=== PATIENT | male | born 1985 | race Caucasian/White ===

== ENCOUNTER 2024-07-07 12:58 | Emergency (ER) | payer BC, SELFPAY ==
--- OUTSIDE RECORDS SUMMARY | 2024-07-07 13:00 | XMS_ITS | Clinical Summary ---
Author Organization [employer] [facility] Address [place], [place] [address] Care Team Providers Care Meeting Coordinator Name Role Phone Dilip Cantu MD Primary Care Provider [phone]- [phone] Allergies No known active allergies Medications hydrocortisone (ANUSOL-HC) 2.5 % rectal creamIndication s:Rectal bleeding,Hemorr hoids, external Apply topically to affected area(s) two times daily. 28 g 1 4 Active Active Problems No known active problems Immunizations Name Administration Dates Next Due Hepatitis A (Adult) 03/17/2019,02/17/2007 Hepatitis B (Adult) 07/06/2007,02/17/2007 Hepatitis B (Peds) 01/28/2002 Influenza Virus, Unspecified 05/23/2019 Influenza, IIV3 (Age 6-35 mos) 8,04/28/2013,04/09/2012,04/23/2011 ,04/26/2008 Influenza, IIV4 07/16/2023,05/01/2017,04/24/2016 ,04/12/2015 Influenza, Whole Virus 05/04/2014 MMR 10/30/1995,01/27/1985 Meningococcal Vaccine (Menomune) 01/28/2002 Oral Polio Vaccine 10/05/1988,01/04/1985, 984,1983 Td (Age >=7 Years) 11/27/2005 Tdap 07/16/2023,04/09/2012 Family History Medical History Relation Name Comments No Known Problems Brother Hyperlipidemia Father Hypertension Father Heart attack Maternal Grandfather No Known Problems Mother Heart attack Other Heart attack Paternal Grandfather Relation Name Status Comments Brother Father Maternal Grandfather Mother Other Paternal Grandfather Social History Tobacco Use Types Packs/Day Years Used Date Smoking Tobacco: Never Smokeless Tobacco: Never Tobacco Cessation:Counseling Given: Yes Alcohol Use Standard Drinks/Week Comments Yes 0 (1 standard drink = 0.6 oz pur e alcohol) O[facility]. [facility] Utilities Answer Date Recorded Do you have trouble paying f or utilities (for example, heat, electricity, water, phone)? Yes 07/13/2023 Social Connections Answer Date Recorded Do you often feel lonely or isolated from those around you? 0 07/13/2023 Financial Resource Strain Answer Date R ecorded Difficulty of Paying Living Expenses 3 07/16/2023 Difficulty of Paying Living Expenses Not on file 07/16/2023 Food Insecurity Answer Date Recorded Do you worry your food will run out before you are able to buy more? 1 07/13/2023 Transportation Needs Answer Date Record ed Does lack of transportation keep you from medica l appointments? 1 07/13/2023 Does lack of transportation keep you from work, meetings or getting things that you need? 1 07/13/2023 Housing Stability Answer Date Recorded What is your housing situation today? 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 Obstetrics History Last Filed Vital Signs Vital Sign Reading Time Taken Comments Blood Pressure 111/71 07/16/2023 10:23 AM PLISSE MACHINE OPERATOR Pulse 59 07/16/2023 10:23 AM PLISSE MACHINE OPERATOR Temperature 36.6 C (97.8 F) 09/25/2016 8:49 AM CDT Respiratory Rate - - Oxygen Saturation 100% 07/16/2023 10:23 AM PLISSE MACHINE OPERATOR Inhaled Oxygen Concentration - - Weight 82.4 kg (181 lb 9.6 oz) 07/16/2023 10:23 AM PLISSE MACHINE OPERATOR Height 187.5 cm (6' 1.82) 07/16/2023 10:[address] Body Mass Index 23.43 07/16/2023 10:23 AM PLISSE MACHINE OPERATOR Plan of Treatment Upcoming Encounters Date Type Department Care Team (Late st Contact Info) Description 07/21/2024 7:25 AM PLISSE MACHINE OPERATOR Office Visit [facility] [address] [facility] [address] Maame Choi PA [address] [place] [address] Health Maintenance Due Date Last Done Comments Depression screening for age 12+ 07/03/2017 07/03/2016 COVID-19 vaccine series ( season) 2024 07/25/2021, 08/23/2020, 07/26/2020 Influenza for age 9-49 03/07/2024 , 05/23/2019, 05/01/2017, Additional history exists BMI (ht and wt on same day) for age 18+ 07/16/2024 07/16/2023, 08/26/2016, 07/03/2016 Lipids for age 35-44 08/13/2028 08/13/2023, 07/04/20 16 Tetanus booster 07/16/2033 07/16/2023, 1010/2011, 11/27/2005 Tdap Completed 07/16/2023, 04/09/2012 HIV for age 15-65 Completed 08/13/2023 Hepatitis C screening for age 18-79 Completed 08/13/2023 Pneumococcal series for age 6-49 Aged Out No longer eligible based on patient's age to complete this topic Procedures Procedure Name Priority Date/Time Associated Diagnosis Comments ANTI HIV 1/2 Routine 08/13/2023 10:00 AM PLISSE MACHINE OPERATOR Encounter for screening for human immunodeficiency virus (HIV) ANTI HCV Routine 08/13/2023 10:00 AM PLISSE MACHINE OPERATOR Encounter for hepatitis C screening test for low risk patient LIPID PANEL W REFLEX MEASURED LDL Routine 08/13/2023 10:00 AM PLISSE MACHINE OPERATOR Encounter for screening for lipoid disorders from Last 3 Months or Most Recently Relevant to Health Maintenance Results * LIPID PANEL W REFLEX MEASURED LDL [[id number]} (08/13/2023 10:00 AM PLISSE MACHINE OPERATOR) CHOLESTEROL,TOTAL 185 100 - 199 mg/dL 08/13/2023 6:09 PM [facility] Comment: Cholesterol, Total Reference Ranges Desirable <200 mg/dL Borderline 200-239 mg/dL High >=240 mg/dL TRIGLYCERIDES 48 <150 mg/dL 08/13/2023 6:09 PM PLISSE MACHINE OPERATOR [facility] HDL CHOLESTEROL 70 >40 mg/dL 6:09 PM PLISSE MACHINE OPERATOR [facility] NON-HDL CHOLESTEROL 115 <145 mg/dl 08/13/2023 6:09 PM PLISSE MACHINE OPERATOR [facility] CHOL/HDL RATIO 2.64 <4.50 08/13/2023 6:09 PM PLISSE MACHINE OPERATOR [facility] LDL CHOLESTEROL 105 <=130 mg/dL 08/13/2023 6:09 PM [facility] VLDL CHOLESTEROL 10 <=30 mg/dL 08/13/2023 6:09 PM [facility] PROVIDER ORDERED STATUS RANDOM 08/13/2023 6:09 PM [facility] Blood BLOOD SPECIMEN / Unknown Venipuncture / Unknown 08/13/2023 10:00 AM PLISSE MACHINE OPERATOR 08/13/2023 10:01 AM [facility] us Maame DRAKE CHEMISTRY Final Res ult [facility] [address] [place] [id number], [place] * ANTI HCV [01732.2] (08/13/2023 10:00 AM [facility]) Pathologist [facility] HEPATITIS C ANTIBODY Non-Reacti ve Non-React jayme 08/13/2023 5:59 PM [facility] Comment:Please note, per www .CDC.gov: If a patient is known to be at high risk of HCV infection, or is symptomatic, and the physician's suspicion of HCV infection is high, HCV RNA testing is often employed and is of diagnostic value, even after an initial negative anti-HCV test result. Blood BLOOD SPECIMEN / Unknown Venipuncture / Unknown 08/13/2023 10:00 AM PLISSE MACHINE OPERATOR 08/13/2023 10:01 AM PLISSE MACHINE OPERATOR Maame DRAKE SEND OUTS Final Res ult [facility] [address] [place] [id number], * ANTI HIV 1/2 [37538.0] (08/13/2023 10:00 AM PLISSE MACHINE OPERATOR) HIV-1/HIV-2 SCREEN Non-Reacti ve Non-Reacti ve 08/13/2023 5:55 PM PLISSE MACHINE OPERATOR [facility] Comment:HIV-1 p24 and HIV-1/ HIV-2 Ab Not Detected. Blood BLOOD SPECIMEN / Unknown Venipuncture / Unknown 08/13/2023 10:00 AM PLISSE MACHINE OPERATOR 08/13/2023 10:01 AM PLISSE MACHINE OPERATOR Maame DRAKE SEND OUTS Final Res ult Performing Organization Address [facility] Co de Phone Number [facility] [address] [place] [address], from Last 3 Months or Most Recently Relevant to Health Maintenance Insurance [facility] Care Teams Meeting Coordinator Relationship Specialty Start Date End Date Dilip Cantu MD [address] [place] [address] PCP - General Family Practice 06/10/16
[2024-07-07 13:20] VITALS: BP 128/74; PULSE 95; RESP 20; TEMP 37.7; O2SAT 98; BMI 23.7
--- NOTE | 2024-07-07 13:56 | ED_ITS ---
HPI - General Adult General Time Seen by Provider: 13:57 Date Seen: 07/07/24 Chief complaint: Cough Stated complaint: cough/fever/headache/SOB Time Seen by Provider: 07/07/24 13:21 Source: patient and RN notes reviewed Mode of arrival: ambulatory Limitations: no limitations History of Present Illness HPI narrative: This 38-year-old male is coming in with concern of fatigue, body aches and fever onset today in the setting being sick for couple weeks now. He has been sick since June 17. Overnight on the , had fevers chills briefly. He has had ongoing cough symptoms this whole time. Today he felt like he was worsening. He has the ongoing cough but today just really felt tired and fatigued, body aches her significant today. He notes he is not sleeping from the cough. Feels short of breath today, has a headache. He denies any significant past medical history such as lung problems, no asthma. Related Data Previous Rx's ?Medication ?Instructions ?Recorded codeine 10 mg-guaifenesin 100 mg/5 5 - 10 ml PO Q6H PRN #473 mL 07/07/24 mL oral liquid (Guaifenesin AC) oseltamivir 75 mg capsule (Tamiflu) 75 mg PO BID 5 days #10 caps 07/07/24 Allergies Allergy/AdvReac Type Severity Reaction Status Date / Time No Known Drug Allergies Allergy Verified 07/07/24 13:23 Review of Systems Status of ROS: Reports: 6 or more systems reviewed and unremarkable except as noted in History and below PFSH PFSH Social History Smoking Status: Current every day smoker Do you use any of these nicotine containing products: None How often do you have a drink containing alcohol: monthly or less AUDIT-C Alcohol total score: 1 Non-prescribed substance use: denies use service: No Exam Const: Vital Signs, click to edit/add: Vital Signs - 24 hr 07/07/24 13:20 Temperature 99.8 F H Pulse Rate [Pulse Oximeter] 95 Respiratory Rate 20 Blood Pressure [Ri ght Upper Arm] 128/74 Pulse Oximetry 98 Oxygen Delivery Me thod Room Air This 38-year-old male is alert, interactive, no apparent distress. Do agree looks tired but no distress. Breathing easily on room air, no tachypnea. Pupils equal round, sclera clear. If the speak in complete sentences, voice is normal. Lungs are clear, good air entry, wheezing crackles, no tachypnea. CV regular rate and rhythm, no murmur, normal S1-S2, no S3-S4. Documenting provider has reviewed patient's vital signs: yes Course Course ED Course: Reviewed with patient it is difficult to ascertain if this is new illness verses possible development of a secondary pneumonia from prior underlying viral illness. Nursing staff has done a triple viral swab, will also get a portable chest x-ray. He is currently hemodynamically stable. Reevaluation(s) Time of Reevaluation #1: 14:27 Reevaluation #1: Have reviewed with patient that his testing is positive for influenza A. His is no present. It sounds as if his symptoms really intensified, body aches, new onset fevers, headache, worsening cough within the last 24 hours. Thus, do feel inclined to treat for influenza a acutely. His chest x-ray my preliminary review looks quite normal. Will update him if the radiologist has anything different but I really do not see anything. Vital Signs Vital signs: Initial Vital Signs Temperature 99.8 F H 07/07/24 13:20 Temperature Source Temporal Artery Scan 07/07/24 13:20 Pulse Rate 95 07/07/24 13:20 Pulse Rhythm Regular 07/07/24 13:20 Respiratory Rate 07/07/24 13:20 Blood Pressure 128/74 07/07/24 13:20 Blood Pressure Mean 92 07/07/24 13:20 Blood Pressure Position Sitting 07/07/24 13:20 Pulse Oximetry 98 07/07/24 13:20 Oxygen Delivery Method Room Air 07/07/24 13:20 Vital Signs Temperature 99.8 F H 07/07/24 13:20 Pulse Rate 95 07/07/24 13:20 Respiratory Rate 20 07/07/24 13:20 Blood Pressure 128/74 07/07/24 13:20 Pulse Oximetry 98 07/07/24 13:20 Oxygen Delivery Method Room Air 07/07/24 13:20 Temperature 99.8 F H 07/07/24 13:20 Pulse Rate 95 07/07/24 13:20 Respiratory Rate 20 07/07/24 13:20 Blood Pressure 128/74 07/07/24 13:20 Pulse Oximetry 98 07/07/24 13:20 Oxygen Delivery Method Room Air 07/07/24 13:20 Medical Decision Making Lab Data Lab results reviewed: Yes I reviewed the patient's lab results Labs: Lab Results 07/07/24 Range/Units 13:24 SARS-CoV-2 (PCR) Negative SARS-CoV-2 (Negative) Influenza Type A (PCR) POSITIVE PCR FLU A A (Negative) Influenza Type B (PCR) Negative PCR FLU B (Negative) RSV (PCR) Negative PCR RSV (Negative) Imaging Data Chest x-ray: Attestation: I have reviewed the pertinent imaging results. My impression: I do not appreciate any acute pathology on my preliminary review of this chest x-ray. Radiologist's impression: Patient: SUZI OCONNELL Facility:?[facility] Patient ID:?[id number] Site Patient ID:?[id number]. Site :?[id number] Study:?XRay-Chest Portable-07/07/2024 2:16:28 PM Ordering Physician:?Danny Nielsen Final Report: INDICATION: Fall hip pain TECHNIQUE: Three views of tip FINDINGS/IMPRESSION: Normal alignment. No acute fracture or acute osseous abnormalities are visualized. Dictated by Radha Jimenez MD @ 07/07/2024 2:46:40 PM (Electronic Signature) Discharge Plan Discharge Clinical Impression: Influenza A Patient Disposition: Home, Self-Care Condition: Stable Instructions: Influenza (ED) Additional Instructions: Start Tamiflu and take as prescribed. Need to start Tamiflu as soon as possible, it becomes ineffective at changing the course of influenza if you started beyond 48 hours of onset of illness. Have written for Robitussin with codeine to help with cough, try to keep use to nighttime is a does have codeine in it. If you are not improving over the next week, have concerns for worsening or other issues stemming from this illness, please seek re-evaluation. Activity Level: Activity as Tolerated Prescriptions: New oseltamivir [Tamiflu] 75 mg capsule 75 mg PO BID 5 Days Qty: 10 0RF codeine-guaifenesin [Guaifenesin AC] 10-100 mg/5 mL liquid 5 - 10 ml PO Q6H PRNQty: 473 0RF Follow Up/Referrals: Dilip Cantu MD [Primary Care Provider] - Stand Alone Forms: [employer] Info Instructions
--- NOTE | 2024-07-07 14:03 | CRLHL7_ITS ---
For Patients: As a result of the Cures Act, medical imaging exams and procedure reports are released immediately into your electronic medical record. You may view this report before your referring provider. If you have questions, please contact your health care provider. INDICATION: Fall hip pain TECHNIQUE: Three views of tip FINDINGS/IMPRESSION: Normal alignment. No acute fracture or acute osseous abnormalities are visualized. Dictated by Radha Jimenez MD @ 07/07/2024 2:46:40 PM (Electronically Signed)
[2024-07-07 14:07] LABS: PCR FLU A POSITIVE PCR FLU A (Negative); PCR FLU B Negative PCR FLU B (Negative); PCR RSV Negative PCR RSV (Negative); SARS PCR* Negative SARS-CoV-2 (Negative)
--- OUTSIDE RECORDS SUMMARY | 2024-07-07 14:25 | XMS_ITS | Clinical Summary ---
Author Organization [employer] [facility] [employer] Address [place], [place] [address] Care Team Providers Care Grey Goods Examiner Name Role Phone Dilip Cantu MD Primary Care Provider +1- [phone] Allergies No known active allergies Medications hydrocortisone [...] = 0.6 oz pur e alcohol) Ocas. 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 Obstetrics History Last Filed Vital Signs Vital Sign Reading Time Taken Comments Blood Pressure 111/71 07/16/2023 10:23 AM FARMER DIVERSIFIED CROPS Pulse 59 07/16/2023 10:23 AM FARMER DIVERSIFIED CROPS Temperature 36.6 C (97.8 F) 09/25/2016 8:49 AM CDT Respiratory Rate - - Oxygen Saturation 100% 07/16/2023 10:23 AM FARMER DIVERSIFIED CROPS Inhaled Oxygen Concentration - - Weight 82.4 kg (181 lb 9.6 oz) 07/16/2023 10:23 AM FARMER DIVERSIFIED CROPS Height 187.5 cm (6' 1.82) 07/16/2023 10:[address] Body Mass Index 23.43 07/16/2023 10:23 AM FARMER DIVERSIFIED CROPS Plan of Treatment Upcoming Encounters Date Type Department Care Team (Late st Contact Info) Description 07/21/2024 7:25 AM FARMER DIVERSIFIED CROPS Office [facility] [address] [facility] [address] Maame Choi PA [address] [place] [address] Health Maintenance Due Date Last Done Comments [...] ANTI HIV 1/2 Routine 08/13/2023 10:00 AM FARMER DIVERSIFIED CROPS Encounter for screening for human immunodeficiency virus (HIV) ANTI HCV Routine 08/13/2023 10:00 AM FARMER DIVERSIFIED CROPS Encounter for hepatitis C screening test for low risk patient LIPID PANEL W REFLEX MEASURED LDL Routine 08/13/2023 10:00 AM FARMER DIVERSIFIED CROPS Encounter for screening for lipoid disorders from Last 3 Months or Most Recently Relevant to Health Maintenance Results * LIPID PANEL W REFLEX MEASURED LDL [[id number]} (08/13/2023 10:00 AM FARMER DIVERSIFIED CROPS) CHOLESTEROL,TOTAL 185 100 - 199 mg/dL 08/13/2023 6:09 PM [facility] Comment: Cholesterol, Total Reference Ranges Desirable <200 mg/dL Borderline 200-239 mg/dL High >=240 mg/dL TRIGLYCERIDES 48 <150 mg/dL 08/13/2023 6:09 PM FARMER DIVERSIFIED CROPS [facility] HDL CHOLESTEROL 70 >40 mg/dL 6:09 PM FARMER DIVERSIFIED CROPS [facility] NON-HDL CHOLESTEROL 115 <145 mg/dl 08/13/2023 6:09 PM FARMER DIVERSIFIED CROPS [facility] CHOL/HDL RATIO 2.64 <4.50 08/13/2023 6:09 PM FARMER DIVERSIFIED CROPS [facility] LDL CHOLESTEROL 105 <=130 mg/dL 08/13/2023 6:09 PM [facility] VLDL CHOLESTEROL 10 <=30 mg/dL 08/13/2023 6:09 PM [facility] PROVIDER ORDERED STATUS RANDOM 08/13/2023 6:09 PM [facility] Blood BLOOD SPECIMEN / Unknown Venipuncture / Unknown 08/13/2023 10:00 AM FARMER DIVERSIFIED CROPS 08/13/2023 10:01 AM [facility] us Maame DRAKE CHEMISTRY Final Res ult [facility] [address] [place] [id number], [place] * ANTI HCV [96952.2] (08/13/2023 10:00 AM [facility]) Pathologist [facility] HEPATITIS C ANTIBODY Non-Reacti ve Non-React jayme 08/13/2023 5:59 PM [facility] Comment:Please note, per www .CDC.gov: If a patient is known to be at high risk of HCV infection, or is symptomatic, and the physician's suspicion of HCV infection is high, HCV RNA testing is often employed and is of diagnostic value, even after an initial negative anti-HCV test result. Blood BLOOD SPECIMEN / Unknown Venipuncture / Unknown 08/13/2023 10:00 AM FARMER DIVERSIFIED CROPS 08/13/2023 10:01 AM FARMER [employer]ERS[employer]IED CROPS Maame DRAKE SEND OUTS Final Res ult [facility] [address] [place] [address], * ANTI HIV 1/2 [57174.0] (08/13/2023 10:00 AM FARMER DIVERSIFIED CROPS) HIV-1/HIV-2 SCREEN Non-Reacti ve Non-Reacti ve 08/13/2023 5:55 PM FARMER DIVERSIFIED CROPS [facility] Comment:HIV-1 p24 and HIV-1/ HIV-2 Ab Not Detected. Blood BLOOD SPECIMEN / Unknown Venipuncture / Unknown 08/13/2023 10:00 AM FARMER DIVERSIFIED CROPS 08/13/2023 10:01 AM FARMER [employer]ERS[employer]IED CROPS Maame DRAKE SEND OUTS Final Res ult Performing Organization Address [facility] Co de Phone Number [facility] [address] [place] [address], from Last 3 Months or Most Recently Relevant to Health Maintenance Insurance [facility] Care Teams Grey Goods Examiner Relationship Specialty Start Date End Date Dilip Cantu MD [address] [place] [address] PCP - General Family Practice 06/10/16
== END 2024-07-07 14:44 | disposition home or self-care (01) ==
PROVIDERS: Emergency Provider Family Medicine; PCP Family Medicine
DX: J09.X2 Influenza due to identified novel influenza A virus with other respiratory manifestations (principal)
CPT/HCPCS: 71045; 87631; 99283